=== PATIENT | male | born 1990 ===

== ENCOUNTER 2023-01-29 19:33 | Emergency (ER) | payer OTHER, SELFPAY ==
--- NOTE | ~2023-01-29 | XR_ITS ---
EXAMINATION: XR HIP, RIGHT CLINICAL INFORMATION: Hip pain COMPARISON: None available. TECHNIQUE: Single view pelvis with 2 additional views of the right hip. FINDINGS: No fracture. Alignment is anatomic. Hip joint space is maintained. Soft tissues are unremarkable. XR/XR hip RT w PEL1V IMPRESSION: Normal right hip.
--- NOTE | 2023-01-29 20:02 | ED.GENADULT ---
HPI - General Adult General Chief complaint: Extremity Problem Stated complaint: Leg pain Time Seen by Provider: 01/30/23 04:38 Source: patient Mode of arrival: ambulatory Limitations: no limitations History of Present Illness HPI narrative: Patient was walking got spasm in back of his right leg 4 days ago since then having pain when ambulates no swelling no significant injury no back pain Related Data Previous Rx's Medication Instructions Recorded cyclobenzaprine 10 mg tablet 10 mg PO Q8H #20 tabs 01/30/23 ibuprofen 600 mg tablet 600 mg PO Q6H PRN fever or pain 01/30/23 #30 tabs tramadol 50 mg tablet 50 mg PO Q6H PRN pain #20 tabs 01/30/23 Allergies Allergy/AdvReac Type Severity Reaction Status Date / Time No Known Drug Allergies Allergy Unknown UNKNOWN Verified 01/29/23 20:05 [NO KNOWN DRUG ALLERGIES] Review of Systems Review of Systems: Yes all other systems are reviewed and are negative PMFSH Social History Social History Advance Directives: No Advance Directives Information Provided: No Physical Exam ED Vital Signs: Vital Signs - 24 hr 01/29/23 20:03 01/30/23 05:33 Temperature 97.8 F 98.4 F Pulse Rate 70 62 Respiratory Rate 19 18 Blood Pressure 127/71 120/68 Pulse Oximetry 97 99 Oxygen Delivery Method Room Air Room Air BMI result Body Mass Index 24.2 Extrem Upper/lower leg/hip images: 1. Spasm of the hamstring muscles good range of movement hip joints normal knee joint normal Course Course Course Narrative: This is an RME: Additional HPI, ROS, PE not included below will be deferred to primary provider. 32-year-old male with no known medical history presents with a chief complaint of R leg pain For 4 days. patient believes he pulled hamstring. no numbness no tingling no chest pain no shortness of breath or blunt trauma. PERC score of 0 plan imaging Toradol Medications Administered Discontinued Medications Generic Name Dose Route Start Last Admin Trade Name Freq PRN Reason Stop Dose Admin Cyclobenzaprine HCl 10 mg 01/30/23 04:53 01/30/23 05:23 Cyclobenzaprine Hcl 10 Mg Tablet PO 01/30/23 04:54 10 mg ONCE ONE Administration Ketorolac Tromethamine 30 mg 01/29/23 20:02 01/30/23 05:23 Ketorolac Tromethamine 15 Mg/Ml Vial IM 01/29/23 20:03 Not Given ONCE ONE Oxycodone HCl 10 mg 01/30/23 04:53 01/30/23 05:23 Oxycodone Hcl Immed Release 5 Mg Tablet PO 01/30/23 04:54 10 mg ONCE ONE Administration Discharge Plan Discharge Clinical Impression: Muscle spasm of right leg Patient Disposition: Home, Self-Care Instructions: Muscle Spasm (ED) Additional Instructions: Take pain medication and muscle relaxants as prescribed Follow with PCP if not better Prescriptions: New cyclobenzaprine 10 mg tablet 10 mg PO Q8H Qty: 20 0RF tramadol 50 mg tablet 50 mg PO Q6H PRN (Reason: pain) Qty: 20 0RF ibuprofen 600 mg tablet 600 mg PO Q6H PRN (Reason: fever or pain) Qty: 30 0RF Stand Alone Forms: Work/School Release Interventions: ED Discharge Assessment Last Done: 01/30/23 05:33 Discharge Date/Time: 01/30/23 05:34
[2023-01-29 20:03] VITALS: BP 127/71; PULSE 70; RESP 19; TEMP 36.6; O2SAT 97; BMI 24.2
[2023-01-30] MEDS: oxyCODONE HCl Immed Release 5 MG TABLET 10 MG PO (05:23)
[2023-01-30] MEDS: Cyclobenzaprine HCl 10 MG TABLET PO (05:23)
--- NOTE | 2023-01-30 05:26 | PC.NURSE ---
IM toradol previously ordered was not given as it was ordered at 8pm and not given. pt was reassessed for pain and provided with alternative medication management
[2023-01-30 05:33] VITALS: BP 120/68; PULSE 62; RESP 18; TEMP 36.9; O2SAT 99
== END 2023-01-30 05:34 | disposition home or self-care (01) ==
PROVIDERS: Emergency Provider Internal Medicine
DX: M62.838 Other muscle spasm (principal); M79.604 Pain in right leg
CPT/HCPCS: 73502; 99283; 99284

== ENCOUNTER 2024-01-07 13:32 | Emergency (ER) | payer OTHER, SELFPAY ==
[2024-01-07 13:39] VITALS: BP 124/78; PULSE 100; O2SAT 100
[2024-01-07 13:44] VITALS: BP 142/84; PULSE 81; RESP 34; O2SAT 100; BMI 18.5
--- NOTE | 2024-01-07 13:49 | ECG_ITS ---
Test Reason : OVERDOSE Blood Pressure : / mmHG Vent. Rate : 075 BPM Atrial Rate : 075 BPM P-R Int : 124 ms QRS Dur : 112 ms QT Int : 426 ms P-R-T Axes : 079 089 077 degrees QTc Int : 475 ms Normal sinus rhythm with sinus arrhythmia Nonspecific ST and T wave abnormality Abnormal ECG No previous ECGs available Referred By: Celso Fernandez Electronically Signed By:Nathan Thompson
[2024-01-07 14:50] LABS: MANUAL DIFF FLAG NO
[2024-01-07 14:53] LABS: Basophils Absolute Auto 0.1 X10*3/uL (0.0-0.2); Basophils Percent Auto 0.3 % (0-2); Eosinophils Absolute Auto 0.3 X10*3/uL (0.0-0.4); Eosinophils Percent Auto 2.3 % (0-4); Hemoglobin 15.4 g/dl (14.0-18.0); Imm Gran Abs Auto 0.06 X10*3/uL (0.00-0.03); Imm Gran Pct Auto 0.4 % (0.0-0.4); Lymphocytes Absolute Auto 2.3 X10*3/uL (1.2-4.9); Lymphocytes Percent Auto 15.1 % (20-40); Mean Corpuscular Hemoglobin 28.3 pg (27.0-33.0); Mean Corpuscular Volume 80.7 fL (80.0-98.0); Mean Platelet Volume 8.8 fL (9.4-12.4); Monocytes Absolute Auto 0.9 X10*3/uL (0.1-1.2); Monocytes Percent Auto 5.7 % (2-11); Neutrophils Absolute Auto 11.4 x10*3/uL (2.0-8.3); Neutrophils Percent Auto 76.2 % (45-73); Platelet Count 398 X10*3/uL (160-400); Red Blood Count 5.45 X10*6/uL (4.60-5.80); Red Cell Distribution Width 11.9 % (11.0-16.0); White Blood Count 14.9 X10*3/uL (4.8-10.8)
[2024-01-07 15:00] VITALS: BP 136/85; PULSE 62; RESP 18; TEMP 36.9; O2SAT 100
[2024-01-07 15:09] LABS: Alanine Aminotransferase 18 U/L (0-40); Albumin Level 5.1 g/dL (3.5-5.0); Alkaline Phosphatase 99 U/L (39-117); Anion Gap 15 (12-20); Aspartate Amino Transferase 23 U/L (5-37); Bilirubin Total 0.4 mg/dL (0.0-1.0); Blood Urea Nitrogen 16 mg/dL (9-16); Calcium 11.1 mg/dL (8.4-10.2); Carbon Dioxide 23 mmol/L (22-29); Chloride 105 mmol/L (96-108); Creatinine Clr Calc Pharmacy 92.8; Estimated Glomerular Filt Rate > 60; Glucose Random 126 mg/dL (60-115); Potassium 3.2 mmol/L (3.3-5.1); Sodium 140 mmol/L (135-145); Total Protein 8.4 g/dL (6.5-8.0)
[2024-01-07 15:30] LABS: Influenza A PCR NEGATIVE (Negative); Influenza B PCR NEGATIVE (Negative); Resp Syncy Virus RNA Qual PCR NEGATIVE (Negative); SARS COV2 PCR INHOUSE NEGATIVE (Negative)
--- NOTE | 2024-01-07 15:44 | ECG_ITS ---
Test Reason : OVERDOSE Blood Pressure : / mmHG Vent. Rate : 081 BPM Atrial Rate : 081 BPM P-R Int : 140 ms QRS Dur : 108 ms QT Int : 436 ms P-R-T Axes : 081 089 081 degrees QTc Int : 506 ms Normal sinus rhythm with sinus arrhythmia Right atrial enlargement T wave abnormality, consider anterior ischemia Abnormal ECG When compared with ECG of 07-JAN-2024 14:13, No significant change was found Referred By: Celso Fernandez Electronically Signed By:Nathan Thompson
--- NOTE | 2024-01-07 15:48 | ED.OVERDOSE ---
HPI - Overdose General Chief Complaint: Overdose Stated Complaint: SUBSTANCE USE Time Seen by Provider: 01/07/24 15:36 Source: patient Mode of arrival: EMS Limitations: no limitations History of Present Illness ED Provider: Dr. Celso Fernandez HPI Narrative: 33-year-old male with a history of narcotic use disorder who states that he takes 4-5 fentanyl pills per day. He states he felt like he was withdrawing and a friend gave him a naltrexone and I told him that this would help with his withdrawal. The patient states that he took the pill 1 hour prior and the pill made him very sick. He states he felt like he was dying. He states that he had nausea, vomiting and diarrhea. He states that his muscles and joints developed severe pain. He states that he was unable to stand and he was having difficulty seeing after taking this pill. Related Data Previous Rx's ?Medication ?Instructions ?Recorded cyclobenzaprine 10 mg tablet 10 mg PO Q8H #20 tabs 01/30/23 ibuprofen 600 mg tablet 600 mg PO Q6H PRN fever or pain 01/30/23 #30 tabs tramadol 50 mg tablet 50 mg PO Q6H PRN pain #20 tabs 01/30/23 Allergies Allergy/AdvReac Type Severity Reaction Status Date / Time No Known Drug Allergies Allergy Unknown UNKNOWN Verified 01/07/24 13:46 [NO KNOWN DRUG ALLERGIES] Review of Systems Review of Systems: Yes all other systems are reviewed and are negative [facility] Past Medical History [facility] Narrative: Past medical history: None. Social history: He denies tobacco and alcohol use. He does use 4-5 pills of fentanyl daily Social History Social History (System 05/07/23 @ 12:03 by Romelia Johansen) Unable to assess alcohol history related to: Refusing to respond Use of substances other than those prescribed or required for medical reasons: Yes Substance Use Type: IV Drugs Advance Directives: No Do you have a plan to hurt others: No Plan Physical Exam Vital Signs: Vital Signs: Last Vital Signs Temp 98.5 F 01/07/24 15:00 Pulse 70 01/07/24 18:00 Resp 15 01/07/24 18:00 BP 107/69 01/07/24 18:00 Pulse Ox 100 01/07/24 18:00 O2 Del Method Room Air 01/07/24 18:00 BMI result Body Mass Index 18.5 Elevated heart rate 100 otherwise vital signs were normal Exam: General: Awake, alert, very thin man with a BMI of 18.5, he appears uncomfortable, agitated, diaphoretic, tremulous, appears to be withdrawing from narcotics Head: Normocephalic, atraumatic EENT: PERRL, Lids normal, sclera normal, conjunctiva normal, nose normal , ears normal, throat without erythema or exudates Neck: Supple, no adenopathy Lung: breath sounds symmetric, no wheezing, rales or rhonchi Chest: symmetric movement, nontender Heart: regular rate and rhythm, normal S1, S2 no murmurs or rubs Abdomen: soft, non-tender, nondistended, normal bowel sounds Back: no vertebral tenderness, no CVAT Extremities: no deformities, moves all extremities symmetrically Neuro: Awake, alert, oriented, normal speech, cranial nerves intact, moves all extremities symmetrically Medications Administered Discontinued Medications Generic Name Dose Route Start Last Admin Trade Name Freq PRN Reason Stop Dose Admin Clonidine HCl 0.1 mg 01/07/24 15:48 01/07/24 16:01 Clonidine Hcl 0.1 Mg Tablet PO 01/07/24 15:49 0.1 mg ONCE ONE Administration Protocol Dicyclomine HCl 10 mg 01/07/24 15:48 01/07/24 16:01 Dicyclomine Hcl 10 Mg Capsule PO 01/07/24 15:49 10 mg ONCE ONE Administration Sodium Chloride 1,000 mls @ 999 mls/hr 01/07/24 15:48 01/07/24 18:39 Ns IV 01/07/24 16:48 Infused .Q1H1M STA Infusion Ketorolac Tromethamine 15 mg 01/07/24 15:48 01/07/24 16:01 Ketorolac Tromethamine 15 Mg/Ml Vial IVPUSH 01/07/24 15:49 15 mg ONCE STA Administration Lorazepam 1 mg 01/07/24 15:48 01/07/24 16:01 Lorazepam 2 Mg/Ml Vial IVPUSH 01/07/24 15:49 1 mg STAT STA Administration Methadone HCl 30 mg 01/07/24 16:19 01/07/24 16:31 Methadone Hcl 20 Mg/2 Ml Oral.Conc PO 01/07/24 16:20 30 mg ONCE ONE Administration Methadone HCl 10 mg 01/07/24 18:45 01/07/24 18:46 Methadone Hcl 20 Mg/2 Ml Oral.Conc PO 01/07/24 18:46 10 mg ONCE ONE Administration Ondansetron HCl 4 mg 01/07/24 15:48 01/07/24 16:01 Ondansetron Hcl 4 Mg/2 Ml Vial IVPUSH 01/07/24 15:49 4 mg ONCE ONE Administration Medical Decision Making Medical Decision Making MDM Narrative: 33-year-old male with a history of narcotic use disorder, he takes 5 fentanyl pills daily who felt like he was withdrawing and took a friend's naltrexone thinking that it would help. Instead this precipitated withdrawal and him. Physical examination did reveal elevated heart rate and he appears uncomfortable, agitated, diaphoretic, tremulous. Differential diagnosis: ?Includes but is not limited to narcotic withdrawal, electrolyte abnormalities, anemia, dehydration, viral syndrome, COVID-19, RSV, influenza volume depletion Following evaluation was ordered: CBC, CMP, COVID-19, influenza, RSV, drug screen, urinalysis Patient was initially treated with the following: IV insert, normal saline x1 L, Bentyl 10 mg orally, clonidine 0.1 mg orally, Toradol 15 mg IV, Zofran 4 mg IV and Ativan 1 mg IV Course: 16:14 My interpretation patient's laboratory evaluation is as follows: Elevated WBC 35457, normal H&H 15.4 and 44.0, platelet count normal 398,000. Potassium low 3.2. Glucose elevated 126, COVID-19, influenza and RSV were negative. 23:28 The patient was seen by our older adult social work specialist, Bernadette Barnes who recommended giving the patient methadone for his withdrawal. Initially he was given 30 mg orally with some improvement of symptoms. He required another dose of methadone 10 mg orally. The patient now is feeling significantly better. I did encourage him to follow-up with [facility] to get help with his narcotic use disorder. Patient was discharged home with an intranasal Narcan rescue pack and I did instruct him on how to use it. Admission/Observation Consideration of admission/observation: Escalation of care including admission/observation considered Consult Healthcare Provider Management of the patient was discussed with: Hr Operations Advisor (Bernadette Barnes, older adult social work specialist) Lab Data [facility] Lab Attestation statement: I reviewed the patient's lab results. 01/07/24 14:45 01/07/24 14:45 Labs: Lab Results 01/07/24 Range/Units 14:45 WBC 14.9 H (4.8-10.8) X10*3/uL RBC 5.45 (4.60-5.80) X10*6/uL Hgb 15.4 (14.0-18.0) g/dl Hct 44.0 (42.0-52.0) % MCV 80.7 (80.0-98.0) fL MCH 28.3 (27.0-33.0) pg MCHC 35.0 (31.0-36.0) g/dl RDW 11.9 (11.0-16.0) % Plt Count 398 (160-400) X10*3/uL MPV 8.8 L (9.4-12.4) fL Immature Gran % (Auto) 0.4 (0.0-0.4) % Neut % (Auto) 76.2 H (45-73) % Lymph % (Auto) 15.1 L (20-40) % Iron % (Auto) 5.7 (2-11) % Eos % (Auto) 2.3 (0-4) % Baso % (Auto) 0.3 (0-2) % Lymph # (Auto) 2.3 (1.2-4.9) X10*3/uL Iron # (Auto) 0.9 (0.1-1.2) X10*3/uL Eos # (Auto) 0.3 (0.0-0.4) X10*3/uL Baso # (Auto) 0.1 (0.0-0.2) X10*3/uL Abs Immat Gran (auto) 0.06 H (0.00-0.03) X10*3/uL Absolute Neuts (auto) 11.4 H (2.0-8.3) x10*3/uL Absolute Nucleated RBC 0.000 (0.0-0.012) X10*3/uL Nucleated RBC % (auto) 0.0 (0.0-0.2) /100WBC Sodium 140 (135-145) mmol/L Potassium 3.2 L (3.3-5.1) mmol/L Chloride 105 (96-108) mmol/L Carbon Dioxide 23 (22-29) mmol/L Anion Gap 15 (12-20) BUN 16 (9-16) mg/dL Creatinine 0.84 (0.5-1.4) mg/dL Estim Creat Clear Calc 92.8 Estimated GFR > 60 Random Glucose 126 H (60-115) mg/dL Calcium 11.1 H (8.4-10.2) mg/dL Total Bilirubin 0.4 (0.0-1.0) mg/dL AST 23 (5-37) U/L ALT 18 (0-40) U/L Alkaline Phosphatase 99 (39-117) U/L Total Protein 8.4 H (6.5-8.0) g/dL Albumin 5.1 H (3.5-5.0) g/dL Influenza Type A (PCR) NEGATIVE (Negative) Influenza Type B (PCR) NEGATIVE (Negative) RSV RNA Qual (PCR) NEGATIVE (Negative) SARS-CoV-2 RNA (RT-PCR) NEGATIVE (Negative) Discharge Plan Discharge Clinical Impression: Opioid withdrawal Patient Disposition: Home, Self-Care Instructions: Narcotic Use Disorder (ED) Additional Instructions: The naltrexone that you took cause you to withdraw from the narcotic medications that you been using. You were treated here in the emergency department with methadone 40 mg orally You should follow-up with our [facility] to get started a methadone clinic and for counseling regarding your narcotic addiction. Your are being discharged home with intranasal Narcan. If you are going to continue to use heroin, you should make sure that there is a sober person with you that is not using drugs and that this person can administer intranasal Narcan in the event that you stop breathing. Follow-up with your doctor in 2 days. Please return to the emergency department if your symptoms get worse or if you develop any symptoms that are concerning to you. Prescriptions: No Action cyclobenzaprine 10 mg tablet 10 mg PO Q8H Qty: 20 0RF tramadol 50 mg tablet 50 mg PO Q6H PRN (Reason: pain) Qty: 20 0RF ibuprofen 600 mg tablet 600 mg PO Q6H PRN (Reason: fever or pain) Qty: 30 0RF Print Language: [place]
[2024-01-07] MEDS: 0.9 % Sodium Chloride 1,000 ML 999 ML IV (16:00)
[2024-01-07 16:01] VITALS: BP 136/85
[2024-01-07] MEDS: Dicyclomine HCl 10 MG CAPSULE PO (16:01)
[2024-01-07] MEDS: LORazepam 2 MG/ML VIAL 1 MG IVPUSH (16:01)
[2024-01-07] MEDS: ondansetron HCL 4 MG/2 ML VIAL IVPUSH (16:01)
[2024-01-07] MEDS: Ketorolac Tromethamine 15 MG/ML VIAL IVPUSH (16:01)
[2024-01-07] MEDS: cloNIDine HCL 0.1 MG TABLET PO (16:01)
[2024-01-07] MEDS: methADONE HCl 20 MG/2 ML ORAL.CONC 30 MG PO (16:31)
[2024-01-07 18:00] VITALS: BP 107/69; PULSE 70; RESP 15; O2SAT 100
--- NOTE | 2024-01-07 18:06 | MHC.EDTECH ---
[facility]
--- NOTE | 2024-01-07 18:11 | HO.ADDICT_ITS ---
History of Present Illness Date of Service: 01/07/2024 Chief Complaint: SUBSTANCE USE Reason for Consult: precipitated withdrawal Sources of Information: patient interviewed and chart reviewed HPI Narrative: Patient is a 33 year old male seen in ED for acute opiate withdrawal Pt reports he uses btwn 4-5 pressed pills daily. He states he was not feeling well earlier and a friend gave him naltrexone and soon after he became very ill COW score 19 When initially seen by this adjusto writer operator patient restless, rocking back and forth, ill appearing. He states he has been using for about a year. Was at [facility] about 2 weeks ago. Initially he was declining any MOUD. He was concerned about feeling worse. T/W assured patient that would not be the case with either buprenorphine or methadone. Ultimately patient agreeable to methadone. Review of Systems Constitutional: Reports as per HPI, Reports body ache(s), Reports chills and Reports malaise Diagnostics Vital Signs (24Hr): Vital Signs - 24 hr 01/07/24 13:44 01/07/24 15:00 01/07/24 16:01 Temperature 98.5 F Pulse Rate 81 62 Respiratory Rate 34 H 18 Blood Pressure 142/84 H 136/85 136/85 Pulse Oximetry 100 100 Oxygen Delivery Method Room Air BMI result Body Mass Index 18.5 Labs 01/07/24 14:45 01/07/24 14:45 Labs: Laboratory Results - last 48 hr 01/07/24 14:45 WBC 14.9 H RBC 5.45 Hgb 15.4 Hct 44.0 MCV 80.7 MCH 28.3 MCHC 35.0 RDW 11.9 Plt Count 398 MPV 8.8 L Immature Gran % (Auto) 0.4 Neut % (Auto) 76.2 H Lymph % (Auto) 15.1 L Sampson % (Auto) 5.7 Eos % (Auto) 2.3 Baso % (Auto) 0.3 Lymph # (Auto) 2.3 Sampson # (Auto) 0.9 Eos # (Auto) 0.3 Baso # (Auto) 0.1 Abs Immat Gran (auto) 0.06 H Absolute Neuts (auto) 11.4 H Absolute Nucleated RBC 0.000 Nucleated RBC % (auto) 0.0 Sodium 140 Potassium 3.2 L Chloride 105 Carbon Dioxide 23 Anion Gap 15 BUN 16 Creatinine 0.84 Estim Creat Clear Calc 92.8 Estimated GFR > 60 Random Glucose 126 H Calcium 11.1 H Total Bilirubin 0.4 AST 23 ALT 18 Alkaline Phosphatase 99 Total Protein 8.4 H Albumin 5.1 H Influenza Type A (PCR) NEGATIVE Influenza Type B (PCR) NEGATIVE RSV RNA Qual (PCR) NEGATIVE SARS-CoV-2 RNA (RT-PCR) NEGATIVE Mental Status Exam Mental Status Exam Level of Consciousness: Restless Patient Behavior: Guarded Medications Allergies Allergies Allergy/AdvReac Type Severity Reaction Status Date / Time No Known Drug Allergies Allergy Unknown UNKNOWN Verified 01/07/24 13:46 [NO KNOWN DRUG ALLERGIES] Assessment & Plan Assessment & Plan (1) Opioid withdrawal: Status: Acute Code(s): F11.93 - Opioid use, unspecified with withdrawal Assessment and Plan: * methadone 30mg x1 * patient reevaluated following dose--reporting some improvement, but still not feeling much better I'm not as bad as I was before * if needed another 10mg methadone * if sx don't subside with methadone, may require another full agonist temporarily in addition to methadone * comfort meds as appropriate * unable to determine dispo at time of eval due to how symptomatic patient was and limited disussion ---if sx resolve in the next several hours, and he would like to continue methadone, he can present to [facility] or [facility] as a walk in in the morning Total time managing care of this patient today _45___ minutes. [facility] Social History Social History (System 05/07/23 @ 12:03 by Romelia Johansen) Unable to assess alcohol history related to: Refusing to respond Use of substances other than those prescribed or required for medical reasons: Yes Substance Use Type: IV Drugs Advance Directives: No Do you have a plan to hurt others: No Plan
[2024-01-07] MEDS: methADONE HCl 20 MG/2 ML ORAL.CONC 10 MG PO (18:46)
--- NOTE | 2024-01-07 20:51 | PC.NURSE ---
Patient requested to call him Mom, Re, for a ride home, [phone], Re called, on her way here to pick him up.
[2024-01-07 21:14] VITALS: BP 122/67; PULSE 70; RESP 18; TEMP 36.9; O2SAT 100
--- NOTE | 2024-01-07 21:15 | PC.NURSE ---
Patient d/c'd with nasal narcan as take home rx per provider, walking with steady gait to [place], mom on her way to pick him up.
== END 2024-01-07 21:14 | disposition home or self-care (01) ==
PROVIDERS: Emergency Provider Emergency Medicine Emergency Medical Services
DX: F11.93 Opioid use, unspecified with withdrawal (principal); R11.2 Nausea with vomiting, unspecified; M25.50 Pain in unspecified joint; M79.10 Myalgia, unspecified site; Z03.818 Encounter for observation for suspected exposure to other biological agents ruled out
CPT/HCPCS: 0241U; 80053; 85025; 93005; 96361; 96374; 96375; 99285; J1885; J2060; J2405

== ENCOUNTER → 2024-01-07 13:49 | Outpatient (BNV) | payer OTHER, SELFPAY | PROVIDERS: Emergency Provider Emergency Medicine Emergency Medical Services; Visit Provider Internal Medicine Cardiovascular Disease | DX: R94.31 Abnormal electrocardiogram [ECG] [EKG] (principal); I51.7 Cardiomegaly | CPT/HCPCS: 93010 ==

== ENCOUNTER → 2024-01-07 15:26 | Outpatient (BNV) | payer OTHER, SELFPAY | PROVIDERS: Emergency Provider Emergency Medicine Emergency Medical Services; Visit Provider Nurse Practitioner Psychiatric/Mental Health | DX: F11.93 Opioid use, unspecified with withdrawal (principal) | CPT/HCPCS: 99283 ==